=== PATIENT | male | born 1995 | race Caucasian/White ===

== ENCOUNTER → 2017-05-31 | Outpatient (CLI) | payer BC ==
[2017-06-02 20:16] LABS: CASHEW CLASS 2; CASHEW IGE 0.89 KU/L; HAZELNUT CLASS 3; PEANUT IGE 0.72 KU/L; PECAN NUT CLASS 0; PECAN NUT IGE <0.10 KU/L; PISTACHIO CLASS 2; PISTACHIO IGE 1.02 KU/L; RAST ALMOND CLASS 0/1; RAST BRAZIL NUT CLASS 0; RAST BRAZIL NUT IGE <0.10 KU/L; RAST HAZELNUT IGE 5.14 KU/L; SCALLOP CLASS 2; SCALLOP IGE 0.93 KU/L; WALNUT CLASS 0
== END | disposition home or self-care (01) ==
LOC: C.LAB1850 12:03
PROVIDERS: ATTEND Internal Medicine Pulmonary Disease
DX: Z91.018 Allergy to other foods (principal)